=== PATIENT | female | born 1995 | race Two or more races ===

== ENCOUNTER → 2016-12-28 | Outpatient (CLI) | payer BC ==
[2016-12-28 20:01] LABS: HEMOGLOBIN 14.4 g/dL (12.2-16.2); LYMPH % 27.7 % (10-50.0)
[2016-12-28 20:29] LABS: BUN 10 mg/dL (7-18)
[2016-12-28 20:50] LABS: GFR (ESTIMATED) 78 ML/MIN (59-)
== END ==
LOC: LAB 19:19
PROVIDERS: Physician Assistant
DX: R00.2 Palpitations (principal)